=== PATIENT | male | born 1975 | race Caucasian/White ===

== ENCOUNTER 2018-07-24 02:00 | Emergency (ER) | payer SELFPAY ==
[~2018-07-24] VITALS: Ht 180.3 cm; Wt 97.5 kg
--- NOTE | 2018-07-24 02:32 | NUR ---
ED Nurse Note: Pt brought in by [employer] officer and c/o R shoulder pain. Pt is AO x 4times, VSS, on room air no distress. MELODIE seen Pt at bedside.
[2018-07-24 02:39] VITALS: BP 133/93
[2018-07-24] MEDS ORDERED: Tylenol #3 tab (300mg/30mg) PO ONE (02:45)
--- NOTE | 2018-07-24 03:35 | NUR ---
ED Nurse Note: X ray at bedside
[2018-07-24] MEDS ORDERED: ACETAMINOPHEN-1 EAC1 ORAL (03:53)
--- NOTE | 2018-07-24 04:00 | NUR ---
ER DISCHARGE NOTE: Patient is cleared to be discharged per ERMD, pt is aox4, on room air, with stable vital signs. [employer] officer was given dc and prescription instructions, officer was able to verbalize understanding, pt id band removed without complications. pt is able to ambulate with steady gait with [employer] officer. pt took all belongings.
[2018-07-24 04:09] VITALS: BP 130/81
--- NOTE | 2018-07-24 06:01 | Emergency Room Report ---
History of Present Illness General Chief Complaint: Upper Extremity Injury Source: Patient Present Illness HPI 43-year-old male presents ED for evaluation. Complaining of right shoulder pain. Is in police custody. States that he has prior shoulder injury with torn labrum. States that during arrest his shoulder was aggravated. Pain is 8 out of 10, sharp, nonradiating. Denies any other injuries. No other aggravating relieving factors. Denies any other associated symptoms Allergies: Coded Allergies: No Known Allergies (Unverified , 07/24/18) Patient History Past Medical History: psych hx Past Surgical History: none Pertinent Family History: none Social History: Denies: smoking, alcohol use, drug use Immunizations: UTD Reviewed Nursing Documentation: PMH: Agreed; PSxH: Agreed Nursing Documentation-PMH History Of Psychiatric Problem: Yes - anxiety, insomnia Hx Cerebrovascular Accident: Yes - R shoulder pain Review of Systems All Other Systems: negative except mentioned in HPI Physical Exam Vital Signs Date Time Temp Pulse Resp B/P (MAP) Pulse Ox O2 Delivery O2 Flow Rate FiO2 07/24/18 02:24 97.9 72 17 133/93 (106) 96 Room Air Sp02 EP Interpretation: reviewed, normal General Appearance: no apparent distress, alert, GCS 15, non-toxic Head: normocephalic Eyes: bilateral eye normal inspection, bilateral eye PERRL ENT: normal ENT inspection Neck: normal inspection Respiratory: normal inspection Cardiovascular #1: normal inspection Gastrointestinal: normal inspection Rectal: deferred Genitourinary: no CVA tenderness Musculoskeletal: tender - R shoulder Neurologic: alert, oriented x3, responsive, motor strength/tone normal, sensory intact, speech normal Psychiatric: normal inspection Skin: normal inspection Lymphatic: normal inspection Procedures Splinting Splinting : Consent: Verbal Pre-Made Type: shouler sling Pre-Proc Neuro Vasc Exam: normal Post-Proc Neuro Vasc Exam: normal Patient Tolerated: Well Complications: None Medical Decision Making Diagnostic Impression: Primary Impression: Medical clearance for incarceration Additional Impression: Shoulder injury Qualified Codes: S49.91XA - Unspecified injury of right shoulder and upper arm , initial encounter ER Course Hospital Course 43-year-old M presents to ED complaining of R shoulder pain. in police custody Differential diagnoses include: Fracture, dislocation, sprain, contusion Clinical course Patient placed on stretcher. After initial history and physical, I ordered pain medications and Xrays of R shoulder Xrays prelim read shows no acute fracture/dislocation. placed in sling discussed findings with patient. Recommend conservative therapy with ice, NSAIDs, light activity. Will provide orthopedic referrals. Patient is medically cleared for incarceration Diagnosis - medical clearance for incarceation, shoulder injury Stable and discharged to home with prescription for tylenol #3. apply ice, keep elevated. weight bear as tolerated. Followup with PMD/ortho. Return to ED if symptoms recur or worsen Other X-Ray Diagnostic Results Other X-Ray Diagnostic Results : X-Ray ordered: R shoulder # of Views/Limited Vs Complete: 3 View Indication: Pain EP Interpretation: Yes Interpretation: no dislocation, no soft tissue swelling, no fractures Impression: No acute disease Electronically Signed by: Electronically signed by Chong Britton MD Last Vital Signs Date Time Temp Pulse Resp B/P (MAP) Pulse Ox O2 Delivery O2 Flow Rate FiO2 07/24/18 04:13 98.2 82 17 130/81 96 Room Air Status: improved Disposition: D/C TO LAW ENFORCEMENT IN CUST Condition: Stable Scripts Acetaminophen With Codeine (T#3) (TYLENOL #3 TAB*) Y Tab 1 TAB ORAL Q8H PRN for For Pain, #12 TAB Prov: Chong Britton MD 07/24/18 Referrals: NOT CHOSEN IPA/,REFERRING (PCP) [facility] Open 24 hour /7 days a week by Appointment Only [address] [facility] [address] Departure Forms: Retirement Clearance Patient Instructions: Shoulder Sprain Chong Britton MD Jul 24, 2018 06:01
--- NOTE | 2018-07-24 17:49 | Diagnostic Imaging Report ---
Indication: Right shoulder pain Technique: 3 views of the right shoulder Comparison: none Findings: No acute fractures. No dislocations. Joint spaces are preserved Impression: Negative This agrees with the preliminary interpretation provided by the emergency room physician
== END 2018-07-24 04:13 ==
LOC: EMR 02:45
DX: S49.91XA Unspecified injury of right shoulder and upper arm, initial encounter (principal); X58.XXXA Exposure to other specified factors, initial encounter; Y92.9 Unspecified place or not applicable; Z86.73 Personal history of transient ischemic attack (TIA), and cerebral infarction without residual deficits
CPT/HCPCS: 99283